=== PATIENT | female | born 1925 | race Caucasian/White ===

== ENCOUNTER 2016-10-21 18:57 | Inpatient (IN) ==
[2016-10-21] MEDS ORDERED: Ipratropium/Albuterol Neb 3 ML IH ONE (19:06)
[2016-10-21] MEDS ORDERED: methylPREDNISolone 125 MG/2 ML VIAL IVP ONE (19:06)
--- NOTE | 2016-10-21 19:11 | Emergency Department Note ---
Disposition Clinical Impression: Acute exacerbation of CHF (congestive heart failure) Qualifiers: Congestive heart failure type: unspecified congestive heart failure type Qualified Code(s): I50.9 - Heart failure, unspecified Disposition: Admitted As Inpatient Condition: Good Forms: ED Satisfaction Letter SOB HPI - General Chief Complaint: ED Shortness of Breath/Dyspnea Stated Complaint: LESLI Time Seen by Provider: 10/21/16 19:03 Source: patient, EMS Mode of arrival: EMS Limitations: no limitations Nursing Notes Reviewed: Yes Vital Signs Reviewed: Yes - History of Present Illness 89-year-old female presents to the ER with a chief complaint of shortness of breath. Pt Subjective Complaint: shortness of breath, cough Onset (ago): hour(s) Context: recent illness Severity: moderate Consistency/Duration: constant Improves with: bronchodilators Worsens with: nothing Associated symptoms: Reports: cough, wheezing. Denies: chest pain, fever, sputum production, lower extremity pain, nausea/vomiting Treatment prior to arrival: oxygen, bronchodilator Cough present: Yes Cough Description: Involuntary Cough Frequency: Intermittent Sputum production: No Sputum Amount: None - Related Data Home oxygen amount: none Allergies Allergy/AdvReac Type Severity Reaction Status Date / Time acetaminophen [From Tylenol] Allergy Rash Verified 10/21/16 19:12 clemastine [From Tavist] Allergy Nose Bleed Verified 10/21/16 19:12 diphenhydramine Allergy Rash Verified 10/21/16 19:12 [From Benadryl] Hydromorphone [From Dilaudid] Allergy Nose Bleed Verified 10/21/16 19:12 ibuprofen [From Advil] Allergy Rash Verified 10/21/16 19:12 morphine Allergy Difficulty Verified 10/21/16 19:12 Swallowing orange juice Allergy Gastrointestinal Verified 10/21/16 19:12 Upset Penicillins Allergy Rash Verified 10/21/16 19:12 pseudoephedrine [From Tavist] Allergy Nose Bleed Verified 10/21/16 19:12 Sulfa (Sulfonamide Allergy Rash Verified 10/21/16 19:12 Antibiotics) All systems ED: reviewed and negative except as stated. Constitutional: Denies: fever, chills, weakness Cardiovascular: Denies: chest pain Respiratory: Reports: cough, dyspnea, wheezes. Denies: hemoptysis Gastrointestinal: Denies: abdominal pain, nausea, vomiting, diarrhea Integumentary: Denies: rash Neurological: Denies: headache Past Medical History - Past Medical History Attestation: Yes The following information was validated with the patient. Source: patient Medical history: Reports: arthritis, coronary artery disease, CVA, hypertension Surgical history: Reports: non-contributory Psychiatric history: Reports: no psych history - Social History Smoking Status: Never smoker Alcohol use: Reports: none Drug use: Reports: none Physical Exam - General Limitations: no limitations General appearance: alert, in no apparent distress - Head Head exam: atraumatic, normocephalic, normal inspection - Eye Eye exam: Present: normal appearance, EOMI - ENT ENT exam: normal exam - Neck Neck exam: Present: normal inspection - Chest Chest inspection: Present: normal inspection, symmetric chest wall rise - Respiratory Respiratory exam: Present: wheezes (Bilateral wheezing more significant on the right with prolonged expiratory phase.), prolonged expiratory phase. Absent: respiratory distress, stridor, accessory muscle use - Cardiovascular Cardiovascular exam: Present: regular rate, normal rhythm, diastolic murmur - Abdominal Exam Abdominal exam: Present: soft, Non-Tender. Absent: tenderness - Extremities Exam Extremities exam: Present: normal inspection, full ROM - Expanded Lower Extremity Exam Hip/Pelvis exam: Present: normal inspection, full ROM Upper leg exam: Present: normal inspection, full ROM Knee exam: Present: normal inspection, full ROM Lower leg exam: Present: normal inspection, full ROM. Absent: tenderness, swelling Ankle exam: Present: normal inspection, full ROM Foot/toe exam: Present: normal inspection, full ROM - Neurological Exam Neurological exam: Present: alert - Psychiatric Psychiatric exam: Present: normal affect, normal mood - Skin Skin exam: Present: warm, dry, intact, normal color Course Course Narrative: 89-year-old female history of hypertension, CAD, CVA who presents to the ER via EMS with a chief complaint of shortness of breath. Patient states she started developing shortness of breath yesterday evening at home. She denies a history of smoking or oxygen dependence. She reports a nonproductive cough. No sick contacts that she is aware of. She did receive her influenza vaccine this year. She denies fevers, chest pain, nausea, vomiting, diarrhea. EMS was called and the patient was transported in stable condition. She did receive 1 DuoNeb in route and reports improvement of her symptoms. No recent antibiotic use or illness. Reports that her daughter is usually at home taking care of her but that she is currently out of the state. Friend is on their way to the ED now. No other complaints. Plan for patient is EKG, chest x-ray. Will give another DuoNeb here and IV Solu -Medrol. Labs pending including troponin and BNP. Disposition pending. - Reevaluation(s) Reevaluation #1: Discussed results of imaging and lab work with the patient and family. Vital Signs Temperature 98.4 F 10/21/16 18:59 Pulse Rate 72 10/21/16 18:59 Respiratory Rate 20 10/21/16 18:59 Blood Pressure 230/110 10/21/16 18:59 O2 Sat by Pulse Oximetry 100 10/21/16 18:59 Temperature 98.4 F 10/21/16 18:59 Pulse Rate 67 10/21/16 20:30 Respiratory Rate 22 10/21/16 20:30 Blood Pressure 201/113 10/21/16 20:30 O2 Sat by Pulse Oximetry 96 10/21/16 20:30 Oxygen Delivery Oxygen Delivery Nasal Cannula Shortness of Breath/Dyspnea - [facility] Narrative Medical decision making narrative: 89-year-old female presents to the ER due to shortness of breath. Her EKG here is sinus rhythm. BNP is elevated and her chest x-ray shows concern for pulmonary vascular congestion. She was given a DuoNeb and Solu-Medrol for her wheezing. Also received 20 mg of Lasix. Will be admitted to the hospital for further management. - Lab Data Lab results reviewed: Yes I reviewed the patient's lab results. Result diagrams: 10/21/16 19:50 10/21/16 19:50 Lab Results 10/21/16 10/21/16 10/21/16 Range/Units 19:50 19:50 19:50 WBC 10.3 (4.3-11.1) K/mcL RBC 4.72 (3.82-4.97) M/mcL Hgb 13.0 (11.5-15.4) g/dL Hct 40.3 (35.3-44.9) % MCV 85.4 (83.0-100.0) fL MCH 27.5 L (28.0-33.3) pg MCHC 32.3 (31.6-35.5) g/dL RDW 12.9 (11.5-14.5) % Plt Count 373 (140-400) K/mcL MPV 9.7 (9.4-12.4) fL Immature Gran % 0.6 (0-4) % Seg Neutrophils % 76.9 % Lymphocytes % 9.0 % Monocytes % 7.6 % Eosinophils % 5.3 % Basophils % 0.6 % Neutrophils # 7.9 (1.6-8.9) K/mcL Lymphocytes # 0.9 (0.6-4.6) K/mcL Monocytes # 0.8 (0.0-1.3) K/mcL Eosinophils # 0.5 (0.0-0.6) K/mcL Basophils # 0.1 (0.0-0.2) K/mcL Sodium 141 (136-145) mEq/L Potassium 4.3 (3.5-4.5) mEq/L Chloride 105 (98-109) mEq/L Carbon Dioxide 25 (19-29) mEq/L BUN 27 H (7-20) mg/dL Creatinine 0.77 (0.57-1.11) mg/dL Est GFR ( Amer) > 60 (> 60) Est GFR (Non-Af Amer) > 60 (> 60) BUN/Creatinine Ratio 35 H (6-26) Glucose 127 H (70-99) mg/dL Calculated Osmolality 299 (280-300) Calcium 9.0 (8.6-10.8) mg/dL Troponin I 0.02 (0-0.03) ng/mL B-Natriuretic Peptide (0-100) pg/mL 10/21/16 Range/Units 19:50 WBC (4.3-11.1) K/mcL RBC (3.82-4.97) M/mcL Hgb (11.5-15.4) g/dL Hct (35.3-44.9) % MCV (83.0-100.0) fL MCH (28.0-33.3) pg MCHC (31.6-35.5) g/dL RDW (11.5-14.5) % Plt Count (140-400) K/mcL MPV (9.4-12.4) fL Immature Gran % (0-4) % Seg Neutrophils % % Lymphocytes % % Monocytes % % Eosinophils % % Basophils % % Neutrophils # (1.6-8.9) K/mcL Lymphocytes # (0.6-4.6) K/mcL Monocytes # (0.0-1.3) K/mcL Eosinophils # (0.0-0.6) K/mcL Basophils # (0.0-0.2) K/mcL Sodium (136-145) mEq/L Potassium (3.5-4.5) mEq/L Chloride (98-109) mEq/L Carbon Dioxide (19-29) mEq/L BUN (7-20) mg/dL Creatinine (0.57-1.11) mg/dL Est GFR ( Amer) (> 60) Est GFR (Non-Af Amer) (> 60) BUN/Creatinine Ratio (6-26) Glucose (70-99) mg/dL Calculated Osmolality (280-300) Calcium (8.6-10.8) mg/dL Troponin I (0-0.03) ng/mL B-Natriuretic Peptide 497 H (0-100) pg/mL - Radiology Data Radiology results reviewed: Yes I reviewed the patient's radiology results. Chest X-Ray 10/21/16 19:06 IMPRESSION: 1. Minimal patchy airspace opacities in the right lung could represent developing multifocal pneumonia or edema. 2. Pulmonary vascular congestion. 3. Suspected bilateral pleural effusions. D/ / Jesse Rhodes MD / Jesse Rhodes MD Interpreting Provider: Jesse Rhodes MD - EKG Data EKG attestation: Yes I reviewed and interpreted this EKG. EKG results narrative: EKG demonstrates sinus rhythm with a rate of 72 bpm. Left axis deviation. GA interval 179 QRS duration 82 QTc 413. T-wave flattening in lead V1. No ST elevations or depressions. No acute ischemic findings. No previous EKG for comparison. EKG shows normal: Reports: sinus rhythm, intervals, QRS complexes, ST-T waves Rate: Reports: normal Rhythm: Reports: NSR Debary/QRS: Reports: left axis deviation When compared to previous EKG there are: previous EKG unavailable Interpretation: Reports: normal EKG, nonspecific ST-T wave changes S.B.A.R. - S.B.A.R. Situation: Demographics, MOA Background: Presenting Complaint, Relevant PMH, Meds, & Allergies Assessment: Vital Signs, Course and respsone to treatment, Exam Concerns, Patient/Family Expectation, Pertinant Lab Results, Outstanding Labs Recommendation: Barrier(s) to disposition, Recommendation based on pending studies, treatments, or consults David Report Given to: Dr. Sara Hernandez Repor Time: 20:59
--- NOTE | 2016-10-21 19:36 | Emergency Department Note ---
START Narrative - START START: I examined this patient and my medical decision-making was reviewed with the IN CLASS SPECIAL EDUCATION TEACHER/PA/Advanced Practice Nurse/Resident Physician. I agree with the documented findings, disposition and treatment plan as described except to the extent set forth below. ED attending note: Patient seen with emergency medicine resident Dr. Brumfield. Please see a copy of his note for details of the H&P, evaluation, management and disposition of this patient. We independently had [id number] contact with the patient Briefly: A 89-year-old female by EMS, nonsmoker COPD without using supplemental home O2 one to 2 days of cough and congestion. Low-grade fever and fatigue. She has mild expiratory wheezing and decreased breath sounds on the right. Afebrile with stable vital signs in the ED. Getting DuoNeb treatments chest x- rays. EKG shows no acute ischemic change. Awaiting x-ray troponin response to beta agonists. Provided 30 minutes of critical care services for this patient. Disposition pending.
[2016-10-21 20:03] LABS: Basophils # 0.1 K/mcL (0.0-0.2); Basophils % 0.6 %; Eosinophils # 0.5 K/mcL (0.0-0.6); Eosinophils % 5.3 %; Hematocrit 40.3 % (35.3-44.9); Immature Granulocytes % 0.6 % (0-4); Lymphocytes # 0.9 K/mcL (0.6-4.6); Mean Corpuscular HGB Conc 32.3 g/dL (31.6-35.5); Mean Corpuscular Hemoglobin 27.5 pg (28.0-33.3); Mean Corpuscular Volume 85.4 fL (83.0-100.0); Mean Platelet Volume 9.7 fL (9.4-12.4); Monocytes # 0.8 K/mcL (0.0-1.3); Monocytes % 7.6 %; Neutrophils # 7.9 K/mcL (1.6-8.9); Platelet Count 373 K/mcL (140-400); Red Blood Count 4.72 M/mcL (3.82-4.97); Red Cell Distribution Width 12.9 % (11.5-14.5); Segmented Neutrophils % 76.9 %
[2016-10-21 20:17] LABS: BUN/Creatinine Ratio 35 (6-26); Blood Urea Nitrogen 27 mg/dL (7-20); Carbon Dioxide 25 mEq/L (19-29); Chloride 105 mEq/L (98-109); Glucose 127 mg/dL (70-99); Osmolality,Calculated 299 (280-300); Potassium 4.3 mEq/L (3.5-4.5); Sodium 141 mEq/L (136-145); eGFR For African Americans > 60 (> 60); eGFR For Non-African Americans > 60 (> 60)
[2016-10-21] MEDS ORDERED: Furosemide 20 MG/2 ML VIAL IVP ONE (20:17)
[2016-10-22] MEDS ORDERED: Ondansetron 4 MG/2 ML VIAL IVP PRN (00:10)
[2016-10-22] MEDS ORDERED: Albuterol 2.5 MG/3 ML NEBULIZER IH PRN (00:10)
[2016-10-22] MEDS ORDERED: Naloxone 0.4 MG/ML INJ IVP PRN (00:10)
--- NOTE | 2016-10-22 00:28 | Internal Med History&Physical ---
Date of Encounter: 10/22/16 Time of Encounter: 00:23 Assessment and Plan (1) CAP (community acquired pneumonia) Current visit: Yes Status: Acute 1. I am not convinced she has CHF. Clinically, she is dry, and history supports pneumonia and/or viral URI. 2. No more diuretics for now. 3. Will cycle troponins, EKG's, and obtain ECHO to evaluate LV function. 4. Will order blood cultures and treat with antibiotics, aerosols, and oxygen. 5. Check influenza panel. 6. Monitor I/O and daily weight. (2) Hypertension Current visit: Yes Status: Chronic 1. Resume home meds as appropriate. 2. Monitor BP and adjust meds as necessary. Qualifiers: Hypertension type: essential hypertension Qualified Code(s): I10 - Essential (primary) hypertension (3) DVT prophylaxis Current visit: Yes Status: Acute 1. Heparin SQ. Internal Medicine - H&P: HPI Chief complaint: SOB, cough Admitted From: Emergency Dept Plans for Post Hospital Care: Home History of present illness: Ms. Boateng is an 89 year old female who presents [facility] with complaints of shortness of breath, cough, and congestion. Symptoms started roughly 2-3 days ago and have progressively worsened. Because of her persistent symptoms, she came to ER where she was seen and evaluated. Workup revealed patient to have an elevated BNP and an abnormal chest x-ray. There was clinical concern for CHF at that time. She therefore received a dose of Lasix along with some aerosols and steroids. She was subsequently admitted to hospitalist service. Upon my assessment of the patient, she appears dehydrated and does not appear to be fluid overloaded. She states she has been coughing productively, short of breath, and suffering a head cold and congestion. She denies any prior history of heart disease or heart failure. She denies any change in weight or any lower extremity edema. She has had multiple ill contacts as well. She denies any fevers, although she does have some chills and night sweats. She denies any vomiting or diarrhea. Appetite and fluid intake have been down as well. She denies any current chest pain or palpitations. She is still a little short of breath, however. Past Med Surg Social Fam HX - Past Medical History Attestation: Yes The following information was validated with the patient. Source: patient, old records reviewed Medical history: arthritis, coronary artery disease, CVA, hypertension Psychiatric history: no psych history - Past Surgical History Surgical History: orthopedic, other (foot surgery) - Social History Smoking Status: Never smoker Alcohol use: none Drug use: none Current living situation: Home, With Family Recent Out of Country Travel Within the Last 8 Weeks: No - Family History Mother History Unknown: Yes Living Status: Father History Unknown: Yes Living Status: Internal Medicine - H&P: Meds Aspirin [Ecotrin] 325 mg PO HS 10/21/16 [History] CloNIDine HCl [Clonidine HCl] 0.2 mg PO TID 10/21/16 [History] Clopidogrel [Plavix] 75 mg PO DAILY 10/21/16 [History] HydrOXYzine 2 tab PO HS 10/21/16 [History] Latanoprost [Xalatan] 1 drop HS 10/21/16 [History] Metoprolol 100 mg PO DAILY 10/21/16 [History] Multivit-Min/FA/Lycopen/Lutein [Centrum Silver Tablet] 1 each PO DAILY 10/21/16 [History] Sodium Bicarbonate 650 mg PO DAILY 10/21/16 [History] Tramadol HCl [Ultram] 50 mg PO TID PRN 10/21/16 [History] Vit C/Vit E/Lutein/Min/[place]-3 [Ocuvite Softgel] 1 each PO 1200 10/21/16 [ History] Allergies acetaminophen [From Tylenol] Allergy (Verified 10/21/16 19:12) Rash clemastine [From Tavist] Allergy (Verified 10/21/16 19:12) Nose Bleed diphenhydramine [From Benadryl] Allergy (Verified 10/21/16 19:12) Rash Hydromorphone [From Dilaudid] Allergy (Verified 10/21/16 19:12) Nose Bleed ibuprofen [From Advil] Allergy (Verified 10/21/16 19:12) Rash morphine Allergy (Verified 10/21/16 19:12) Difficulty Swallowing orange juice Allergy (Verified 10/21/16 19:12) Gastrointestinal Upset Penicillins Allergy (Verified 10/21/16 19:12) Rash pseudoephedrine [From Tavist] Allergy (Verified 10/21/16 19:12) Nose Bleed Sulfa (Sulfonamide Antibiotics) Allergy (Verified 10/21/16 19:12) Rash - Constitutional Constitutional: chills, night sweats, weakness, no fever(s) - EENT Eyes: no blurry vision, no change in vision Ears: no ear pain, no tinnitus Nose, mouth and throat: nasal congestion, no post-nasal drip, no sinus pressure , no sore throat - Cardiovascular Cardiovascular ROS IM: dyspnea, dyspnea on exertion, no chest pain, no edema, no orthopnea, no paroxysmal nocturnal dyspnea - Respiratory Respiratory: cough, dyspnea, dyspnea on exertion, chest congestion, no hemoptysis, no excessive phlegm production - Gastrointestinal Gastrointestinal: no abdominal pain, no diarrhea, no hematemesis, no hematochezia, no melena, no vomiting - Genitourinary Genitourinary: no dysuria, no hematuria - Musculoskeletal Musculoskeletal ROS IM: arthralgias, back pain, muscle weakness, no myalgias - Integumentary Integumentary IM: no rash, no jaundice - Neurological Neurological ROS: no dizziness, no focal weakness, no frequent falls, no headache(s) - Psychiatric Psychiatric: no anxiety, no depression - Endocrine Endocrine IM: no polydipsia, no polyuria - Hematologic/Lymphatic Hematologic/Lymphatic: easy bruising, no lymphadenopathy - Allergic/Immunologic Allergic/Immunologic: no GI upset with certain foods - Constitutional Vitals: Temp Pulse Resp BP Pulse Ox 97.6 F 69 16 165/74 93 L 10/21/16 21:44 10/21/16 21:44 10/21/16 21:44 10/21/16 21:44 10/21/16 21:44 General appearance: Present: cooperative, A&O X 3, pleasant, no acute distress, answers questions appropriately Exam: pt looks a little dry; does not appear to be fluid overloaded - Head Head exam: Present: atraumatic, normal inspection - Expanded Head Exam Head exam expanded: Absent: abrasion, contusion, general tenderness - Eye Eye exam: Present: PERRL. Absent: scleral icterus Pupils: Present: normal accommodation - ENT ENT exam: Present: mucous membranes dry, normal exam, normal oropharynx - Neck Neck exam general surgery: Present: full ROM, supple. Absent: lymphadenopathy, tenderness - Respiratory Respiratory exam: Present: rales (right base). Absent: chest wall tenderness, respiratory distress, rhonchi, wheezes - Cardiovascular Cardiovascular exam: Present: RRR, +S1, +S2. Absent: diastolic murmur, JVD, systolic murmur - GI/Abdominal GI/Abdominal exam: Present: normal bowel sounds, soft. Absent: guarding, mass, rebound, tenderness - Extremities Exam Extremities exam: Present: warm. Absent: calf tenderness, joint swelling, pedal edema Additional comments: foot deformities consistent with Charcot feet - Back Exam Back exam: Present: normal inspection. Absent: CVA tenderness (L), CVA tenderness (R) - Neurological Exam Neurological exam: Present: alert, CN II-XII intact, oriented X3, no focal deficits - Psychiatric Psychiatric exam: Present: normal affect, normal mood - Skin Skin exam: Present: dry, warm. Absent: rash Additional comments: + skin tenting consistent with mild dehydration Internal Med - H&P Results - Labs CBC & Chem 7: 10/21/16 19:50 10/21/16 19:50 - EKG Data -: EKG Interpreted by Myself EKG shows normal: sinus rhythm - EKG Data Prior EKG available for review: no EKG comments: 10/22/16 00:33 Sinus rhythm; LVH pattern - Diagnostic Studies Chest x-ray Status: image reviewed by me (I dont appreciate CHf findings; patchy infiltrate RML; small right pleural effusion)
[2016-10-22] MEDS ORDERED: Levofloxacin 750 MG/150 ML 750 MG/150 ML BAG IVPB SCH (01:00)
[2016-10-22 01:45] LABS: INR 1.1; Prothrombin Time 12.2 Seconds (9.4-12.1)
[2016-10-22 01:47] LABS: Activated Partial Thrombo Time 29.1 Seconds (26.0-36.0)
[2016-10-22 01:48] LABS: Basophils % 0.2 %; Eosinophils % 0.1 %; Hematocrit 37.9 % (35.3-44.9); Hemoglobin 12.2 g/dL (11.5-15.4); Immature Granulocytes % 0.8 % (0-4); Lymphocytes # 0.7 K/mcL (0.6-4.6); Lymphocytes % 6.5 %; Mean Corpuscular HGB Conc 32.2 g/dL (31.6-35.5); Mean Corpuscular Hemoglobin 27.3 pg (28.0-33.3); Mean Corpuscular Volume 84.8 fL (83.0-100.0); Mean Platelet Volume 9.9 fL (9.4-12.4); Monocytes # 0.1 K/mcL (0.0-1.3); Monocytes % 0.5 %; Neutrophils # 10.4 K/mcL (1.6-8.9); Platelet Count 401 K/mcL (140-400); Red Blood Count 4.47 M/mcL (3.82-4.97); Segmented Neutrophils % 91.9 %
[2016-10-22 01:54] LABS: Alanine Aminotransferase 11 Units/L (0-55); Albumin 2.4 g/dL (3.5-5.0); Albumin/Globulin Ratio 0.5 (1.1-2.2); Alkaline Phosphatase 87 Units/L (38-126); Aspartate Amino Transferase 15 Units/L (5-34); BUN/Creatinine Ratio 33 (6-26); Bilirubin,Total 0.2 mg/dL (0.2-1.2); Blood Urea Nitrogen 26 mg/dL (7-20); Calcium 9.2 mg/dL (8.6-10.8); Carbon Dioxide 23 mEq/L (19-29); Chloride 104 mEq/L (98-109); Cholesterol 144 mg/dL (< 200); Globulin 4.7 g/dL (2.4-3.5); Glucose 171 mg/dL (70-99); HDL Cholesterol 29 mg/dL (40-59); LDL Cholesterol,Calculated 97 mg/dL (0-99); Magnesium 1.4 mg/dL (1.6-2.6); Osmolality,Calculated 295 (280-300); Potassium 4.5 mEq/L (3.5-4.5); Sodium 138 mEq/L (136-145); Total Protein 7.1 g/dL (6.0-8.3); Triglycerides 91 mg/dL (< 150); eGFR For African Americans > 60 (> 60); eGFR For Non-African Americans > 60 (> 60)
[2016-10-22] MEDS: *HR* Heparin 5,000 UNIT/ML VIAL SQ SCH ×2 (02:02→18:15)
[2016-10-22] MEDS: traMADol 50 MG TABLET PO PRN ×3 (03:47→20:58)
[2016-10-22] MEDS: Ipratropium/Albuterol Neb 3 ML IH SCH ×4 (04:39→21:43)
[2016-10-22] MEDS: cloNIDine HCl 0.1 MG TABLET PO SCH ×3 (08:43→20:54)
[2016-10-22] MEDS: Magnesium Oxide 400 MG TABLET PO SCH ×2 (08:43→20:54)
[2016-10-22] MEDS: Metoprolol XL (24 HR) Succ 50 MG TAB.ER.24H PO SCH (08:43)
[2016-10-22] MEDS: Multivit/Ca/Min/Fe/FA 1 TAB TABLET PO SCH (08:44)
--- NOTE | 2016-10-22 14:06 | Event Note ---
Date of Encounter: 10/22/16 Time of Encounter: 09:00 Patient seen and examined. On examination, patient is sitting in high [place]' s. Patient currently complaining of back pain that she states started last night. She is requesting for her pain medication increased. She denies shortness of breath. Patient stating her cough has nearly resolved. Her respirations are even and easy and her lungs are clear to auscultation bilaterally. No pedal edema noted however her right foot is deformed. She states that she is nonambulatory for the past several months and is wheelchair bound. Mild hypomagnesemia noted she was started on by mouth supplementation. Echocardiogram pending. She is alert and oriented 3. Will increase her pain medication. web services developer on board however patient has 24 hour private pay homecare at home. Continue levofloxacin. Presentation more consistent with multifocal pneumonia as evidenced in the chest x-ray. She does not appear fluid overloaded on examination. We will continue to trend. Regarding pain medication, she has documented allergies to morphine, hydromorphone, ibuprofen and acetaminophen. Patient stating tramadol is not helping her pain, and review of her chart, she has had oxycodone in the past without adverse reactions documented. We will order oxycodone and monitor. She is currently on 2 L per nasal cannula, not on oxygen at home. We will wean as she tolerates. ITS Impressions Chest X-Ray 10/21/16 19:06 IMPRESSION: 1. Minimal patchy airspace opacities in the right lung could represent developing multifocal pneumonia or edema. 2. Pulmonary vascular congestion. 3. Suspected bilateral pleural effusions. D/ / Jesse Rhodes MD / Jesse Rhodes MD Interpreting Provider: Jesse Rhodes MD
[2016-10-22] MEDS ORDERED: *HR* OxyCODONE Immed Rel 5 MG TABLET PO PRN (14:07)
--- NOTE | 2016-10-22 15:20 | Electrocardiograph Report ---
[place] [address] Test Date: 2016-10-21 Pat Name: María Boateng Department: 102 Room: 3B14 Gender: F Beautician Apprentice: : 1925 Requested By: Godwin Brumfield Order Number: [id number] Reading MD: Patrice Cuevas Measurements Intervals [place] Rate: 72 P: 74 VT: 179 QRS: -14 QRSD: 82 T: 50 QT: 389 QTc: 413 Interpretive Statements SINUS RHYTHM LEFT VENTRICULAR HYPERTROPHY AND ST-T CHANGE Electronically Signed On 10-22-2016 15:19:17 EST by Patrice Cuevas
[2016-10-22] MEDS: Aspirin Enteric Coated 325 MG Tablet PO SCH (20:54)
[2016-10-22] MEDS: Latanoprost 2.5 ML BOTTLE BOTH EYES SCH (20:55)
[2016-10-23] MEDS: Ipratropium/Albuterol Neb 3 ML IH SCH ×4 (03:59→22:01)
[2016-10-23 05:09] LABS: BUN/Creatinine Ratio 42 (6-26); Blood Urea Nitrogen 38 mg/dL (7-20); Calcium 8.9 mg/dL (8.6-10.8); Carbon Dioxide 26 mEq/L (19-29); Chloride 103 mEq/L (98-109); Glucose 110 mg/dL (70-99); Magnesium 1.7 mg/dL (1.6-2.6); Osmolality,Calculated 296 (280-300); Potassium 4.4 mEq/L (3.5-4.5); Sodium 138 mEq/L (136-145); eGFR For African Americans > 60 (> 60); eGFR For Non-African Americans 59 (> 60)
[2016-10-23] MEDS ORDERED: *HR* Labetalol 20 MG/4 ML SYRINGE IVP ONE (05:25)
[2016-10-23] MEDS: *HR* Heparin 5,000 UNIT/ML VIAL SQ SCH ×2 (05:36→17:36)
[2016-10-23 05:44] LABS: Basophils % 0.4 %; Eosinophils % 0.1 %; Hematocrit 37.8 % (35.3-44.9); Hemoglobin 12.2 g/dL (11.5-15.4); Immature Granulocytes % 1.1 % (0-4); Lymphocytes # 1.5 K/mcL (0.6-4.6); Lymphocytes % 15.7 %; Mean Corpuscular HGB Conc 32.3 g/dL (31.6-35.5); Mean Corpuscular Hemoglobin 27.2 pg (28.0-33.3); Mean Corpuscular Volume 84.2 fL (83.0-100.0); Mean Platelet Volume 10.1 fL (9.4-12.4); Monocytes # 0.6 K/mcL (0.0-1.3); Monocytes % 6.7 %; Neutrophils # 7.1 K/mcL (1.6-8.9); Platelet Count 382 K/mcL (140-400); Red Blood Count 4.49 M/mcL (3.82-4.97)
[2016-10-23] MEDS: Multivit/Ca/Min/Fe/FA 1 TAB TABLET PO SCH (08:03)
[2016-10-23] MEDS: Magnesium Oxide 400 MG TABLET PO SCH ×2 (08:03→20:37)
[2016-10-23] MEDS: Metoprolol XL (24 HR) Succ 50 MG TAB.ER.24H PO SCH (08:03)
[2016-10-23] MEDS: cloNIDine HCl 0.1 MG TABLET PO SCH ×3 (08:03→20:38)
[2016-10-23] MEDS ORDERED: amLODIPine 5 MG TABLET PO ONE (08:08)
[2016-10-23 09:13] LABS: 2009 H1N1 PCR NOT DETECTED (Not Detect); Influenza A PCR Negative (Negative); Influenza B PCR Negative (Negative)
--- NOTE | 2016-10-23 09:24 | ECHO - Doppler Report ---
Echocardiogram Name: María Boateng Date of Study: 10/22/2016 Date: 1925 Ht: 65.0 in Medical Record#: [id number] Age: 89 Wt: 139.0 lb Gender: Female BSA: 1.69 Order #: [id number] Location: [facility] Room #: 3B14 Reading Physician: Callie Frey DO Oracle Technical Architect: Mandy Lee Ordering Physician: Mo Ruiz MD Primary Physician: Michael Sanders DO Indications: Shortness of breath Impressions: LVEF 55%. Normal left ventricular size and systolic function. Mild concentric hypertrophy of the left ventricle. There is evidence of moderate diastolic dysfunction of the left ventricle. Normal right ventricular size and function. Mild mitral regurgitation. Mild tricuspid regurgitation. At least mild pulmonary hypertension by TR gradient. IVC is not well visualized. Left Ventricular Wall Motion: Rest Echo Findings All wall segments showed normal motion. Findings: Study Quality * Technically adequate exam. ECG Findings * Normal sinus rhythm. Left Ventricle * LVEF 55%. * Mild concentric left ventricular hypertrophy. * Moderate left ventricular diastolic dysfunction. Aortic Valve * No aortic regurgitation. * Aortic valve not well visualized. * No aortic stenosis. Mitral Valve * Normal mitral valve structure. * No mitral stenosis. * Mild mitral annular calcification * Mild mitral regurgitation. Left Atrium * Moderately dilated left atrium. Tricuspid Valve * Tricuspid valve not well visualized. * Mild tricuspid regurgitation. Pulmonic Valve * Pulmonic valve is not well visualized. * No pulmonic stenosis. * No pulmonic regurgitation. Pulmonary Artery * Pulmonary artery not well visualized. Right Ventricle * Normal right ventricular structure and function. Right Atrium * Normal right atrial size. IVC * The IVC is not well evaluated. Interatrial Septum * Interatrial septum not well evaluated. Pericardium * There is no pericardial effusion present. Aorta * Not well visualized. History Hypertension 07/20/2016 a Previous Echo was performed. Measurements: BP: 166/ 90 2D Normal Values IVSd: 1.30 cm 0.6 - 1.0 cm LVIDd: 3.80 cm 3.7 - 5.6 cm LVPWd: 1.30 cm 0.6 - 1.1 cm LVIDs: 2.70 cm 1.5 - 3.6 cm AO: 2.40 cm < 4.0 cm LA: 2.90 cm 2.0 - 4.0cm %FS: 28.90 cm >25 % LA volume: 67 Mitral Valve Peak E:.96 m/sec Peak A:.84 m/sec E/A Ratio:1.1 Peak E' Lat Carlos:4.29 cm/s Peak E' Med Carlos:5.17 cm/s E/E' Lat Ratio:22.2 E/E' Med Ratio:18.4 Tricuspid Valve TV Regurg Peak Grad: 34.00mmHg TV Regurg Peak Carlos: 2.92m/sec Updated by Callie Frey on 10/23/2016 9:16:13 AM electronically signed on 10/23/2016 9:16:49 AM with status of Final Wall Motion Rangel: 1=Normal, 2=Hypokinesis, 3=Akinesis, 4=Dyskinesis, 5=Aneurysmal, 6=Hyperkinetic, X=Not Visualized (Blank)=Missing
--- NOTE | 2016-10-23 10:03 | Internal Med Progress Note ---
Date of Encounter: 10/23/16 Time of Encounter: 10:00 - Assessment and plan (1) CAP (community acquired pneumonia) Current Visit: Yes Status: Acute Assessment and plan: se came for sob and cough CXR showed multiple patchy opacities on marcella right side, being treated for multifocal pneumonia will continue levoflox. follow blood cx, will send for urine legionella and strep antigen. reports clinically better denies h/o COPD or asthma titrtae and wean off o2 as able. (2) Diastolic CHF Current Visit: Yes Status: Acute Assessment and plan: last ECHO showed normal EF and moderate DD. on exam appears to be euvolemic today no signs of volume overload. continue home meds Qualifiers: Congestive heart failure chronicity: chronic Qualified Code(s): I50.32 - Chronic diastolic (congestive) heart failure (3) Hypertension Current Visit: Yes Status: Chronic Assessment and plan: BP noted to be elevated s/p 1 dose of labetalol last night will start amlod 10 mg once and 5 mg daily continue the clonidine and the BB. will also add low dose TERRANCE-I which will be beneficial for the DD. monitor BP. Qualifiers: Hypertension type: essential hypertension Qualified Code(s): I10 - Essential (primary) hypertension - Time Spent With Patient 25 - 35 minutes - Subjective Interval history: patient seen at the bedsid, denies any complaints. Reports that breathing is better, does not have any chest pain or shortness of breath. Mild cough - Constitutional Vitals: Temp Pulse Resp BP Pulse Ox 97.7 F 66 17 185/102 96 10/23/16 07:36 10/23/16 07:36 10/23/16 07:36 10/23/16 07:36 10/23/16 07:36 General appearance: Present: cooperative, A&O X 3, pleasant, no acute distress, answers questions appropriately Exam: - Head Head exam: Present: atraumatic, normal inspection - Expanded Head Exam Head exam expanded: Absent: abrasion, contusion, general tenderness - Eye Eye exam: Present: PERRL. Absent: scleral icterus Pupils: Present: normal accommodation - ENT ENT exam: Present: mucous membranes dry, normal exam, normal oropharynx - Neck Neck exam general surgery: Present: full ROM, supple. Absent: lymphadenopathy, tenderness - Respiratory Respiratory exam: Present: clear breath sounds Absent: chest wall tenderness, respiratory distress, rhonchi, wheezes - Cardiovascular Cardiovascular exam: Present: RRR, +S1, +S2. Absent: diastolic murmur, JVD, systolic murmur - GI/Abdominal GI/Abdominal exam: Present: normal bowel sounds, soft. Absent: guarding, mass, rebound, tenderness - Extremities Exam Extremities exam: Present: warm. Absent: calf tenderness, joint swelling, pedal edema Additional comments: foot deformities consistent with Charcot feet, deformties of the upper and lower ext with swan neck deformity - Back Exam Back exam: Present: normal inspection. Absent: CVA tenderness (L), CVA tenderness (R) - Neurological Exam Neurological exam: Present: alert, CN II-XII intact, oriented X3, no focal deficits - Psychiatric Psychiatric exam: Present: normal affect, normal mood - Skin Skin exam: Present: dry, warm. Absent: rash Internal Medicine: Result - Labs CBC & Chem 7: 10/23/16 04:29 10/23/16 04:29 Labs: Short CBC 10/23/16 Range/Units 04:29 WBC 9.3 (4.3-11.1) K/mcL Hgb 12.2 (11.5-15.4) g/dL Hct 37.8 (35.3-44.9) % Plt Count 382 (140-400) K/mcL Neutrophils # 7.1 (1.6-8.9) K/mcL BMP 10/23/16 04:29 Sodium 138 Potassium 4.4 Chloride 103 Carbon Dioxide 26 BUN 38 H D Creatinine 0.90 Glucose 110 H Calcium 8.9 - ABG Interpretation ABG results: PT/INR, D-dimer PT 12.2 Seconds (9.4-12.1) H 10/22/16 01:19 Consult Discharge Plan - Plan Referrals: Michael Sanders DO [Primary Care Provider] -
[2016-10-23] MEDS: Aspirin Enteric Coated 325 MG Tablet PO SCH (20:38)
[2016-10-23] MEDS: Latanoprost 2.5 ML BOTTLE BOTH EYES SCH (20:38)
[2016-10-23] MEDS: traMADol 50 MG TABLET PO PRN (20:44)
[2016-10-24] MEDS ORDERED: Levofloxacin 750 MG/150 ML 750 MG/150 ML BAG IVPB SCH (02:00)
[2016-10-24] MEDS: Ipratropium/Albuterol Neb 3 ML IH SCH ×3 (03:54→15:59)
[2016-10-24] MEDS: *HR* Heparin 5,000 UNIT/ML VIAL SQ SCH (06:08)
[2016-10-24] MEDS: Magnesium Oxide 400 MG TABLET PO SCH (08:37)
[2016-10-24] MEDS: Multivit/Ca/Min/Fe/FA 1 TAB TABLET PO SCH (08:37)
[2016-10-24] MEDS: Metoprolol XL (24 HR) Succ 50 MG TAB.ER.24H PO SCH (08:37)
[2016-10-24] MEDS: cloNIDine HCl 0.1 MG TABLET PO SCH (08:38)
[2016-10-24] MEDS ORDERED: amLODIPine 5 MG TABLET PO SCH (09:00)
[2016-10-24 11:14] VITALS: BP 128/77
--- NOTE | 2016-10-24 14:12 | Discharge Summary ---
Date of Encounter: 10/24/16 Time of Encounter: 14:07 - Discharge Diagnosis (1) CAP (community acquired pneumonia) Priority: Primary Status: Acute (2) Diastolic CHF Priority: Secondary Status: Acute Qualifiers: Congestive heart failure chronicity: chronic Qualified Code(s): I50.32 - Chronic diastolic (congestive) heart failure (3) Hypertension Priority: Secondary Status: Chronic Qualifiers: Hypertension type: essential hypertension Qualified Code(s): I10 - Essential (primary) hypertension - Discharge Medications Prescriptions: Amlodipine [Norvasc] 10 mg PO DAILY #30 tablet Levofloxacin 500 mg PO DAILY #5 tablet Home Medications: Latanoprost [Xalatan] 1 drop BOTH EYES QPM 08/29/15 [History] Aspirin [Ecotrin] 325 mg PO HS 10/21/16 [History] CloNIDine HCl [Clonidine HCl] 0.2 mg PO TID 10/21/16 [History] Clopidogrel [Plavix] 75 mg PO DAILY 10/21/16 [History] Metoprolol XL (24 HR) Succ [Toprol Xl] 100 mg PO DAILY 10/21/16 [History] Sodium Bicarbonate 650 mg PO QAM 10/21/16 [History] HydrOXYzine Pamoate 50 mg PO HS 10/22/16 [History] Multivitamin/Iron/Folic Acid [Centrum Complete Multivit Tab] 1 tab PO DAILY [History] Mv-Mn/FA/Vit K1/Lycop/Lut/Zeax [Ocuvite Eye + Multi Tablet] 1 tab PO QDPC [History] Tramadol HCl [Ultram] 50 mg PO PRN PRN 10/22/16 [History] Amlodipine [Norvasc] 10 mg PO DAILY #30 tablet 10/24/16 [Rx] Levofloxacin 500 mg PO DAILY #5 tablet 10/24/16 [Rx] Allergies/Adverse Reactions: Allergies Sulfa (Sulfonamide Antibiotics) Allergy (Mild, Verified 04/19/16 10:49) Rash clemastine [From Tavist] Allergy (Verified 05/27/16 13:53) See Comments Hydromorphone [From Dilaudid] Allergy (Verified 05/27/16 13:53) See Comments pseudoephedrine [From Tavist] Allergy (Verified 05/27/16 13:53) See Comments diphenhydramine [From Benadryl] Adverse Reaction (Mild, Verified 04/19/16 10:47) Drowsy orange juice Adverse Reaction (Mild, Verified 04/19/16 10:51) See Comments Patient reporst "gallbladder attacks" acetaminophen [From Tylenol] Adverse Reaction (Verified 08/31/15 11:06) Hypertension Hydralazine Adverse Reaction (Verified 07/25/16 11:50) See Comments patient is sensitive to medication, drops blood pressure too much ibuprofen [From Advil] Adverse Reaction (Verified 05/27/16 13:53) See Comments morphine Adverse Reaction (Verified 08/31/15 11:06) See Comments Penicillins Adverse Reaction (Verified 08/31/15 11:05) Nose Bleed Date of admission: 10/22/16 14:24 Primary care physician: Michael Sanders Discharging clinician: Laury Farrar Anticipated date of discharge: 10/24/16 - Patient Status Disposition: Home, Self-Care Condition: Good Functional capacity at discharge: uses cane/walker Overall status at discharge: patient is back to baseline - Discharge Instructions Instructions: Amlodipine (By mouth), Levofloxacin (By mouth), Heart Failure (DC ), Chronic Hypertension (DC) Follow Up With: Michael Sanders, [Primary Care Provider] - 11/01/16 11:00 am - Diet and Activity Activity: resume usual activities as tolerated Diet: advance to your usual diet Interval History: Ms. Boateng is an 89 year old female who presents to ER [facility] with complaints of shortness of breath, cough, and congestion. Symptoms started roughly 2-3 days ago and have progressively worsened. Because of her persistent symptoms, she came to ER where she was seen and evaluated. Workup revealed patient to have an elevated BNP and an abnormal chest x-ray. There was clinical concern for CHF vs pneumonia at that time. She therefore received a dose of Lasix along with some aerosols and steroids. She was subsequently admitted to hospitalist service. Upon further assessment of the patient, she appears dehydrated and does not appear to be fluid overloaded. She states she has been coughing productively, short of breath, and suffering a head cold and congestion. She denies any prior history of heart disease or heart failure. She denies any change in weight or any lower extremity edema. She has had multiple ill contacts as well. She denies any fevers, although she does have some chills and night sweats. She denies any vomiting or diarrhea. Appetite and fluid intake have been down as well. She denies any current chest pain or palpitations. she was thus started on IV antibiotics and lasix was stopped. she improved clinically with the tretament she was n oted to have elevated BP. have added amlodipine along with the BB and the clonidine that she takes at home she is being dc today in stable condition with oral antibiotics. Hospital course: Ms. Boateng is a 89 year old female Time spent discussing smoking cessation with patient: more than 10 minutes - Time Spent with Patient Total time spent providing and/or coordinating discharge services: Greater than 30 minutes - Constitutional Vitals: Temp Pulse Resp BP Pulse Ox 97.9 F 84 16 128/77 94 L 10/24/16 11:13 10/24/16 11:13 10/24/16 11:13 10/24/16 11:13 10/24/16 11:13 General appearance: Present: cooperative, A&O X 3, pleasant, no acute distress, answers questions appropriately Exam: - Head Head exam: Present: atraumatic, normal inspection - Eye Eye exam: Present: PERRL. Absent: scleral icterus Pupils: Present: normal accommodation - ENT ENT exam: Present: normal exam, normal oropharynx - Neck Neck exam general surgery: Present: full ROM, supple. Absent: lymphadenopathy, tenderness - Respiratory Respiratory exam: Present: rales (right base). Absent: chest wall tenderness, respiratory distress, rhonchi, wheezes - Cardiovascular Cardiovascular exam: Present: RRR, +S1, +S2. Absent: diastolic murmur, JVD, systolic murmur - GI/Abdominal GI/Abdominal exam: Present: normal bowel sounds, soft. Absent: guarding, mass, rebound, tenderness - Extremities Exam Extremities exam: Present: warm. Absent: calf tenderness, joint swelling, pedal edema Additional comments: foot deformities consistent with Charcot feet - Back Exam Back exam: Present: normal inspection. Absent: CVA tenderness (L), CVA tenderness (R) - Neurological Exam Neurological exam: Present: alert, CN II-XII intact, oriented X3, no focal deficits - Psychiatric Psychiatric exam: Present: normal affect, normal mood - Skin Skin exam: Present: dry, warm. Absent: rash
== END 2016-10-24 16:05 | disposition home or self-care (01) | DRG 194 ==
LOC: EMEROO 18:57 → 3BNU 18:57 → MERGE 21:07 → 3BNU 21:30
PROVIDERS: ADMIT Pediatrics; ATTEND Nurse Practitioner Family

== ENCOUNTER 2016-10-30 12:43 | Inpatient (IN) ==
--- NOTE | 2016-10-30 16:04 | Emergency Department Note ---
Disposition Clinical Impression: Acute exacerbation of chronic obstructive airways disease Dyspnea Qualifiers: Dyspnea type: unspecified Qualified Code(s): R06.00 - Dyspnea, unspecified Disposition: Admitted As Inpatient Condition: Fair Time of Disposition: 18:16 SOB HPI - General Chief Complaint: ED Shortness of Breath/Dyspnea Stated Complaint: LESLI,Wheezing Time Seen by Provider: 10/30/16 14:59 Source: patient, family Mode of arrival: ambulatory Limitations: no limitations Nursing Notes Reviewed: Yes Vital Signs Reviewed: Yes - History of Present Illness 89-year-old female history of hypertension, diastolic congestive heart failure presents to the ED for difficulty in breathing. Patient was recently discharged after being diagnosed with heart failure and treated for community acquired pneumonia 6 days ago, Tuesday 10/24. Since then the patient has finished a five-day course of Levaquin. She reports yesterday she felt more shorter breath with laying down. She required prompting with 3 pillows in order to sleep last night. She presents with her caregivers who are there 24 hours of the day, she lives with her daughter at home. She denies any recent fever, productive cough, chest pain. She is not have any swelling of the ankles. She has just started a new medication amlodipine on discharge. She has been taking all her medications as prescribed. Follow-up appointment with her primary care physician Dr. Sanders on 11/01. ECHO 10/22 with EF 55% with moderate diastolic Pt Subjective Complaint: shortness of breath Onset (ago): day(s) - Related Data Home Medications Medication Instructions Recorded Confirmed Latanoprost [Xalatan] 1 drop BOTH EYES QPM 08/29/15 10/30/16 Aspirin [Ecotrin] 325 mg PO HS 10/21/16 10/30/16 CloNIDine HCl [Clonidine HCl] 0.2 mg PO TID 10/21/16 10/30/16 Clopidogrel [Plavix] 75 mg PO DAILY 10/21/16 10/30/16 Metoprolol XL (24 HR) Succ [Toprol 100 mg PO DAILY 10/21/16 10/30/16 Xl] Sodium Bicarbonate 650 mg PO QAM 10/21/16 10/30/16 HydrOXYzine Pamoate 50 mg PO HS 10/22/16 10/30/16 Multivitamin/Iron/Folic Acid 1 tab PO DAILY 02/27/17 03/07/17 [Centrum Complete Multivit Tab] Mv-Mn/FA/Vit K1/Lycop/Lut/Zeax 1 tab PO QDPC 10/22/16 10/30/16 [Ocuvite Eye + Multi Tablet] Tramadol HCl [Ultram] 50 mg PO PRN PRN 10/22/16 10/30/16 Previous Rx's Medication Instructions Recorded Amlodipine [Norvasc] 10 mg PO DAILY #30 tablet 10/24/16 Allergies Allergy/AdvReac Type Severity Reaction Status Date / Time Sulfa (Sulfonamide Allergy Mild Rash Verified 04/19/16 10:49 Antibiotics) clemastine [From Tavist] Allergy See Verified 05/27/16 13:53 Comments Hydromorphone [From Dilaudid] Allergy See Verified 05/27/16 13:53 Comments pseudoephedrine [From Tavist] Allergy See Verified 05/27/16 13:53 Comments diphenhydramine AdvReac Mild Drowsy Verified 04/19/16 10:47 [From Benadryl] orange juice AdvReac Mild See Verified 04/19/16 10:51 Comments acetaminophen [From Tylenol] AdvReac Hypertensio Verified 08/31/15 11:06 n Hydralazine AdvReac See Verified 07/25/16 11:50 Comments ibuprofen [From Advil] AdvReac See Verified 05/27/16 13:53 Comments morphine AdvReac See Verified 08/31/15 11:06 Comments Penicillins AdvReac Nose Bleed Verified 08/31/15 11:05 All systems ED: reviewed and negative except as stated. Constitutional: Denies: fever, chills Cardiovascular: Denies: chest pain Respiratory: Reports: cough, dyspnea, wheezes. Denies: hemoptysis, stridor, sputum production Gastrointestinal: Denies: abdominal pain, nausea, vomiting Genitourinary: Denies: urgency, dysuria Musculoskeletal: Denies: back pain, neck pain Integumentary: Denies: rash, abrasion Past Medical History - Past Medical History Attestation: Yes The following information was validated with the patient. Source: patient Medical history: Reports: arthritis, CHF, coronary artery disease, CVA, hypertension, peripheral artery disease, RA, TIA Surgical history: Reports: hip replacement, knee replacement, orthopedic, other , ANASTASIA/BSO, appendectomy Psychiatric history: Reports: no psych history SOCIAL SERVICE COORDINATOR history: Reports: no SOCIAL SERVICE COORDINATOR history - Social History Smoking Status: Never smoker Smokeless Tobacco Status: No Alcohol use: Reports: none Drug use: Reports: none Physical Exam - General Limitations: no limitations General appearance: alert, in no apparent distress, other (She is wearing a nasal cannula, no respiratory distress, frail appearing) - Head Head exam: atraumatic, normocephalic, normal inspection - Eye Eye exam: Present: normal appearance, PERRL, EOMI - ENT ENT exam: normal exam, normal oropharynx, mucous membranes moist - Neck Neck exam: Present: normal inspection, full ROM, trachea midline - Chest Chest inspection: Present: normal inspection, symmetric chest wall rise. Absent : tenderness, rash - Respiratory Respiratory exam: Present: normal lung sounds bilaterally, wheezes (Expiratory) , other (Coarse breath sounds, normal work of breathing). Absent: respiratory distress, accessory muscle use - Expanded Respiratory Exam Location: wheezes: Right, rales: Lower - Cardiovascular Cardiovascular exam: Present: regular rate, normal rhythm, normal heart sounds. Absent: systolic murmur, diastolic murmur - Abdominal Exam Abdominal exam: Present: soft, Non-Tender, normal bowel sounds. Absent: tenderness, distention, guarding, rebound, rigidity - Extremities Exam Extremities exam: Present: normal inspection, full ROM, normal capillary refill. Absent: tenderness, pedal edema, calf tenderness - Neurological Exam Neurological exam: Present: alert, oriented X3 - Psychiatric Psychiatric exam: Present: normal affect, normal mood - Skin Skin exam: Present: warm, dry, intact, other (multiple ecchymoses to the bilateral arms from prior IV sticks) Course Course Narrative: A 11-year-old female recently discharged for diastolic heart failure and community acquired pneumonia presents to the ED with worsening dyspnea. She initially came in short of breath with audible wheezes. She was placed on oxygen out triage after low oxygen saturation. She is not. Many acute distress. She has normal worker breathing. Lungs are wheezy bilaterally with course breath sounds. She is not have any pedal edema. Check a chest x-ray, basic labs, troponin, breathing treatments. Patient will likely need admission. - Reevaluation(s) Reevaluation #1: After the breathing treatments she continues to be course bilaterally with wheezing more so on the right. Chest x-ray reveals improvement in the right basilar craft. We had a discussion with the social service coordinator Suzan and annita of long care goals. Patient has been in the senior living in the past and does not wish to return. She is comfortable at home living with daughter as well as her caretakers. I discussed with the patient on disposition, patient and hematology supervisor would like to have patient admitted. She does not have oxygen at home. Will plan to admit patient for COPD exacerbation, dyspnea. Patient has IV Solu- Medrol ordered. Patient is 95% on RA currently after initially being hypoxic 90% Time: 18:00 - Consultations Consultation #1: Spoke with on-call hospitalist carlota Hill to admit for COPD exacerbation, dyspnea. No further orders at this time. Currently 95% on room air after 3 continuous duonebs and steroids. Lungs are coarse with rales/wheezes R > L Time: 18:02 Vital Signs Temperature 97.4 F L 10/30/16 13:48 Pulse Rate 84 10/30/16 13:48 Respiratory Rate 20 10/30/16 13:48 Blood Pressure 96/61 10/30/16 13:48 O2 Sat by Pulse Oximetry 99 10/30/16 13:48 Temperature 97.4 F L 10/30/16 13:48 Pulse Rate 57 10/30/16 15:53 Respiratory Rate 20 10/30/16 18:24 Blood Pressure 140/113 10/30/16 18:24 O2 Sat by Pulse Oximetry 97 10/30/16 16:38 Oxygen Delivery Oxygen Delivery Nasal Cannula Shortness of Breath/Dyspnea - Medical Records Medical records reviewed: Yes I reviewed the patient's medical records. - Lab Data Lab results reviewed: Yes I reviewed the patient's lab results. Result diagrams: 10/30/16 17:03 10/30/16 17:03 Lab Results 10/30/16 10/30/16 10/30/16 Range/Units 17:03 17:03 17:03 WBC 7.4 (4.3-11.1) K/mcL RBC 5.45 H (3.82-4.97) M/mcL Hgb 14.9 (11.5-15.4) g/dL Hct 46.1 H (35.3-44.9) % MCV 84.6 (83.0-100.0) fL MCH 27.3 L (28.0-33.3) pg MCHC 32.3 (31.6-35.5) g/dL RDW 13.6 (11.5-14.5) % Plt Count 303 (140-400) K/mcL MPV 9.5 (9.4-12.4) fL Immature Gran % 1.6 (0-4) % Seg Neutrophils % 55.4 % Lymphocytes % 23.5 % Monocytes % 9.8 % Eosinophils % 8.5 % Basophils % 1.2 % Neutrophils # 4.1 (1.6-8.9) K/mcL Lymphocytes # 1.7 (0.6-4.6) K/mcL Monocytes # 0.7 (0.0-1.3) K/mcL Eosinophils # 0.6 (0.0-0.6) K/mcL Basophils # 0.1 (0.0-0.2) K/mcL Sodium 138 (136-145) mEq/L Potassium 4.6 H (3.5-4.5) mEq/L Chloride 100 (98-109) mEq/L Carbon Dioxide 26 (19-29) mEq/L BUN 21 H (7-20) mg/dL Creatinine 0.85 (0.57-1.11) mg/dL Est GFR ( Amer) > 60 (> 60) Est GFR (Non-Af Amer) > 60 (> 60) BUN/Creatinine Ratio 25 (6-26) Glucose 96 (70-99) mg/dL Calculated Osmolality 289 (280-300) Calcium 9.0 (8.6-10.8) mg/dL Troponin I 0.01 (0-0.03) ng/mL B-Natriuretic Peptide (0-100) pg/mL 10/30/16 Range/Units 17:03 WBC (4.3-11.1) K/mcL RBC (3.82-4.97) M/mcL Hgb (11.5-15.4) g/dL Hct (35.3-44.9) % MCV (83.0-100.0) fL MCH (28.0-33.3) pg MCHC (31.6-35.5) g/dL RDW (11.5-14.5) % Plt Count (140-400) K/mcL MPV (9.4-12.4) fL Immature Gran % (0-4) % Seg Neutrophils % % Lymphocytes % % Monocytes % % Eosinophils % % Basophils % % Neutrophils # (1.6-8.9) K/mcL Lymphocytes # (0.6-4.6) K/mcL Monocytes # (0.0-1.3) K/mcL Eosinophils # (0.0-0.6) K/mcL Basophils # (0.0-0.2) K/mcL Sodium (136-145) mEq/L Potassium (3.5-4.5) mEq/L Chloride (98-109) mEq/L Carbon Dioxide (19-29) mEq/L BUN (7-20) mg/dL Creatinine (0.57-1.11) mg/dL Est GFR ( Amer) (> 60) Est GFR (Non-Af Amer) (> 60) BUN/Creatinine Ratio (6-26) Glucose (70-99) mg/dL Calculated Osmolality (280-300) Calcium (8.6-10.8) mg/dL Troponin I (0-0.03) ng/mL B-Natriuretic Peptide 210 H (0-100) pg/mL - Radiology Data Radiology results reviewed: Yes I reviewed the patient's radiology results. Chest X-Ray 10/30/16 13:57 IMPRESSION: Some interval improvement in right basilar opacification and small effusion. Otherwise unremarkable chest. D/ / Ari Zhang MD / Ari Zhang MD Interpreting Provider: Ari Zhang MD - EKG Data EKG attestation: Yes I reviewed and interpreted this EKG. EKG results narrative: EKG performed 1545 sinus bradycardia 56 bpm DE interval 206 left axis deviation , good R-R wave progression, there are no ST elevations or depressions, no T- wave inversions. QRS 94 QT QTC 449 440. Compared to old EKG performed 2016 shows consistent findings normal sinus rhythm. No acute ischemic changes. Attestation Statement - Attestation Attestation: I examined this patient and my medical decision-making was reviewed with the PARTICIPANT ADMINISTRATOR/PA/Advanced Practice Nurse/Resident Physician. I agree with the documented findings, disposition and treatment plan as described except to the extent set forth below. Patient presents to the emergency department with a chief complaint of difficulty in breathing. Patient was just discharged a few days ago. Admitted for pneumonia. She has been getting worse home. Having to sleep propped up on pillows. Wheezing. On examination she is in no distress. She states she feels better on the oxygen. She has diffuse expiratory wheezing on my evaluation after 3 DuoNeb's. Plan. Patient feeling much better. Will admit.
[2016-10-30] MEDS ORDERED: Ipratropium/Albuterol Neb 3 ML IH ONE (16:16)
[2016-10-30 17:12] LABS: Basophils # 0.1 K/mcL (0.0-0.2); Basophils % 1.2 %; Eosinophils # 0.6 K/mcL (0.0-0.6); Eosinophils % 8.5 %; Hematocrit 46.1 % (35.3-44.9); Hemoglobin 14.9 g/dL (11.5-15.4); Immature Granulocytes % 1.6 % (0-4); Lymphocytes # 1.7 K/mcL (0.6-4.6); Lymphocytes % 23.5 %; Mean Corpuscular HGB Conc 32.3 g/dL (31.6-35.5); Mean Corpuscular Hemoglobin 27.3 pg (28.0-33.3); Mean Corpuscular Volume 84.6 fL (83.0-100.0); Mean Platelet Volume 9.5 fL (9.4-12.4); Monocytes # 0.7 K/mcL (0.0-1.3); Monocytes % 9.8 %; Neutrophils # 4.1 K/mcL (1.6-8.9); Platelet Count 303 K/mcL (140-400); Red Blood Count 5.45 M/mcL (3.82-4.97); Red Cell Distribution Width 13.6 % (11.5-14.5); Segmented Neutrophils % 55.4 %
[2016-10-30 17:23] LABS: BUN/Creatinine Ratio 25 (6-26); Blood Urea Nitrogen 21 mg/dL (7-20); Carbon Dioxide 26 mEq/L (19-29); Chloride 100 mEq/L (98-109); Glucose 96 mg/dL (70-99); Osmolality,Calculated 289 (280-300); Potassium 4.6 mEq/L (3.5-4.5); Sodium 138 mEq/L (136-145); eGFR For African Americans > 60 (> 60); eGFR For Non-African Americans > 60 (> 60)
[2016-10-30] MEDS ORDERED: methylPREDNISolone 125 MG/2 ML VIAL IV ONE (17:43)
--- NOTE | 2016-10-30 20:32 | Internal Med History&Physical ---
Date of Encounter: 10/30/16 Time of Encounter: 20:29 Assessment and Plan (1) CAP (community acquired pneumonia) Current visit: No Status: Acute CXR did demonstrate improving right basilar opacity which indicates resolving pneumonia she had been treated for during previous admission Will continue patient on Levaquin 500 mg IV daily She does not meet any SIRS criteria Continue supplemental oxygen and breathing treatments as needed She is not on oxygen at home, and is currently saturating in low-mid 90's on 2 L nasal cannula; may benefit from home oxygen upon discharge (2) Diastolic CHF Current visit: No Status: Chronic As demonstrated on echo last week, preserved EF of 55% She does not have home diuretics and appears mildly hypervolemic, will gently diurese with one time 20 mg Lasix IV Will measure daily weights and I/O's Qualifiers: Congestive heart failure chronicity: chronic Qualified Code(s): I50.32 - Chronic diastolic (congestive) heart failure (3) Hypertension Current visit: No Status: Chronic Blood pressures borderline elevated upon admission Will continue home Toprol, Norvasc and Clonidine Qualifiers: Hypertension type: essential hypertension Qualified Code(s): I10 - Essential (primary) hypertension (4) History of stroke Current visit: No Status: Chronic Stable, no acute deficits at this point Will continue home ASA and Plavix (5) DVT prophylaxis Current visit: No Status: Acute Lovenox 30 mg daily Internal Medicine - H&P: HPI Chief complaint: shortness of breath Admitted From: Home Plans for Post Hospital Care: Home History of present illness: Ms. Boateng is a 89 year old female who presents to the ED with shortness of breath with nonproductive cough. She is accompanied by her daughter whom she lives with and is able to assist with history. She was recently hospitalized last week with community acquired pneumonia and was found to have diastolic heart failure. She was discharged with 5 days of Levaquin and claims to have finished the course. She states that when she went home, she was feeling better but in the last 2 or 3 days she became increasingly wheezy and more short of breath at rest. Daughter does help with activities of daily living and when she is not around there as a private caregiver as well. They noticed that the patient has required more pillows at night in order to sleep and sits up to relieve her breathing. She has never been diagnosed with COPD and is not on any oxygen or inhalers at home. Patient denies any recent chest pain, fever , sputum production, lightheadedness, and has never been diagnosed with cancer or blood clots. Of note, patient did sustain a CVA roughly 5 years ago and has been virtually bedbound since then. Past Med Surg Social Fam HX - Past Medical History Medical history: arthritis, CHF, coronary artery disease, CVA, hypertension, peripheral artery disease, RA, TIA Psychiatric history: no psych history - Past Surgical History Surgical History: hip replacement, knee replacement, orthopedic, other, ANASTASIA/BSO , appendectomy - Social History Smoking Status: Never smoker Smokeless Tobacco Status: No Alcohol use: none Drug use: none - Family History Mother Living Status: Hx Family Cardiac Disorders: No Hx Family Respiratory Disorders: No Hx Family Cancer: No Hx Family GI Disorders: No Hx Family Endocrine Disorder: No Hx Family Neuromuscular Disorders: No Hx Family Neurologic Disorders: No Hx Family HEENT Disorders: No Hx Family Autoimmune Disorders: No Father Living Status: Hx Family Cardiac Disorders: No Hx Family Respiratory Disorders: No Hx Family Cancer: No Hx Family GI Disorders: No Hx Family Endocrine Disorder: No Hx Family Neuromuscular Disorders: No Hx Family Neurologic Disorders: No Hx Family HEENT Disorders: No Hx Family Autoimmune Disorders: No Internal Medicine - H&P: Meds Latanoprost [Xalatan] 1 drop BOTH EYES QPM 08/29/15 [History] Aspirin [Ecotrin] 325 mg PO HS 10/21/16 [History] CloNIDine HCl [Clonidine HCl] 0.2 mg PO TID 10/21/16 [History] Clopidogrel [Plavix] 75 mg PO DAILY 10/21/16 [History] Metoprolol XL (24 HR) Succ [Toprol Xl] 100 mg PO DAILY 10/21/16 [History] Sodium Bicarbonate 650 mg PO QAM 10/21/16 [History] HydrOXYzine Pamoate 50 mg PO HS 10/22/16 [History] Multivitamin/Iron/Folic Acid [Centrum Complete Multivit Tab] 1 tab PO DAILY [History] Mv-Mn/FA/Vit K1/Lycop/Lut/Zeax [Ocuvite Eye + Multi Tablet] 1 tab PO QDPC [History] Tramadol HCl [Ultram] 50 mg PO PRN PRN 10/22/16 [History] Amlodipine [Norvasc] 10 mg PO DAILY #30 tablet 10/24/16 [Rx] Allergies Sulfa (Sulfonamide Antibiotics) Allergy (Mild, Verified 04/19/16 10:49) Rash clemastine [From Tavist] Allergy (Verified 05/27/16 13:53) See Comments Hydromorphone [From Dilaudid] Allergy (Verified 05/27/16 13:53) See Comments pseudoephedrine [From Tavist] Allergy (Verified 05/27/16 13:53) See Comments diphenhydramine [From Benadryl] Adverse Reaction (Mild, Verified 04/19/16 10:47) Drowsy orange juice Adverse Reaction (Mild, Verified 04/19/16 10:51) See Comments Patient reporst "gallbladder attacks" acetaminophen [From Tylenol] Adverse Reaction (Verified 08/31/15 11:06) Hypertension Hydralazine Adverse Reaction (Verified 07/25/16 11:50) See Comments patient is sensitive to medication, drops blood pressure too much ibuprofen [From Advil] Adverse Reaction (Verified 05/27/16 13:53) See Comments morphine Adverse Reaction (Verified 08/31/15 11:06) See Comments Penicillins Adverse Reaction (Verified 08/31/15 11:05) Nose Bleed All Systems PM: A 10-system review of systems was performed and is negative for pertinent findings except as documented above in the HPI. - Constitutional Constitutional: no chills, no fever(s), no night sweats - EENT Eyes: no change in vision, no discharge, no pain, no photophobia Ears: no ear discharge, no ear pain, no tinnitus Nose, mouth and throat: no dysphagia, no nasal discharge, no neck pain, no sore throat - Cardiovascular Cardiovascular ROS IM: dyspnea, no chest pain, no diaphoresis, no lightheadedness, no palpitations, no syncope - Respiratory Respiratory: cough, dyspnea, wheezing, no excessive phlegm production, no change in phlegm color, no pain with cough - Gastrointestinal Gastrointestinal: no abdominal pain, no diarrhea, no hematemesis, no hematochezia, no melena, no nausea, no vomiting - Genitourinary Genitourinary: no change in urinary stream, no dysuria, no flank pain, no hematuria - Musculoskeletal Musculoskeletal ROS IM: no numbness, no tingling - Integumentary Integumentary IM: no rash, no unusual bruising - Neurological Neurological ROS: no confusion, no convulsions, no focal weakness, no numbness, no tingling, no tremor(s) - Hematologic/Lymphatic Hematologic/Lymphatic: no easy bruising - Constitutional Vitals: Temp Pulse Resp BP Pulse Ox 97.4 F L 65 20 175/92 97 10/30/16 13:48 10/30/16 19:12 10/30/16 19:12 10/30/16 19:12 10/30/16 19:12 General appearance: Present: cooperative, A&O X 3, pleasant, no acute distress, answers questions appropriately - Head Head exam: Present: atraumatic, normocephalic - Eye Eye exam: Present: PERRL, conjuntiva pink, sclera anicteric - Neck Neck exam general surgery: Present: supple, trachea midline. Absent: lymphadenopathy - Respiratory Respiratory exam: Present: wheezes. Absent: accessory muscle use, decreased breath sounds, rales, respiratory distress, rhonchi - Cardiovascular Cardiovascular exam: Present: RRR, +S1, +S2. Absent: diastolic murmur, gallop, rubs, systolic murmur - GI/Abdominal GI/Abdominal exam: Present: normal bowel sounds, soft, no peritoneal signs. Absent: distended, tenderness - Extremities Exam Extremities exam: Present: warm, radial pulses palpable and symetrical. Absent : calf tenderness, cyanotic, pedal edema - Neurological Exam Neurological exam: Present: alert, oriented X3, no focal deficits. Absent: facial droop, speech deficit - Skin Skin exam: Present: dry, intact Internal Med - H&P Results - Labs CBC & Chem 7: 10/30/16 17:03 10/30/16 17:03
[2016-10-30] MEDS ORDERED: Ondansetron ODT 4 MG TAB.RAPDIS SL PRN (20:35)
[2016-10-30] MEDS ORDERED: Naloxone 0.4 MG/ML INJ IVP PRN (20:35)
[2016-10-30] MEDS ORDERED: Albuterol 2.5 MG/3 ML NEBULIZER IH PRN (20:39)
[2016-10-30] MEDS: hydrOXYzine pamoate 25 MG CAPSULE PO SCH (22:28)
[2016-10-30] MEDS: cloNIDine HCl 0.1 MG TABLET PO SCH (22:29)
[2016-10-30] MEDS: Aspirin Enteric Coated 325 MG Tablet PO SCH (22:29)
[2016-10-30] MEDS: Budesonide/Formoterol 80/4.5 MDI IH SCH (22:54)
[2016-10-30] MEDS: Ipratropium/Albuterol Neb 3 ML IH SCH (22:54)
[2016-10-30] MEDS ORDERED: Furosemide 20 MG/2 ML VIAL IVP ONE (22:56)
[2016-10-30] MEDS ORDERED: Furosemide 20 MG TABLET PO PRN (23:31)
--- NOTE | 2016-10-30 23:35 | Event Note ---
Date of Encounter: 10/30/16 Time of Encounter: 23:32 Patient seen and examined withpractitioner. Patient just discharged from the hospital a week ago after community acquired pneumonia and completed a total of 10 days of Levaquin. For the past few days patient has been more short of breath with minimal exertion wheezing and shortness of breath when she lays flat. Patient denies any significant sputum production no fevers or chills. Because the patient is still short of breath will continue full antibiotic course for pneumonia 14 days will give 4 more days of Levaquin. I suspect there is also an element of diastolic CHF. If anything there is only mild volume overload. I will give the patient one dose of Lasix 20 mg IV and keep her on 20 mg PO daily. I would also get a VQ scan to r?o pulmonary embolism.
[2016-10-31] MEDS ORDERED: methylPREDNISolone 125 MG/2 ML VIAL IVP SCH
[2016-10-31] MEDS: traMADol 50 MG TABLET PO SCH ×2 (01:06→09:30)
[2016-10-31] MEDS: Ipratropium/Albuterol Neb 3 ML IH SCH ×4 (03:45→21:50)
[2016-10-31 05:54] LABS: BUN/Creatinine Ratio 32 (6-26); Blood Urea Nitrogen 24 mg/dL (7-20); Calcium 8.3 mg/dL (8.6-10.8); Carbon Dioxide 23 mEq/L (19-29); Chloride 102 mEq/L (98-109); Glucose 178 mg/dL (70-99); Magnesium 1.7 mg/dL (1.6-2.6); Osmolality,Calculated 292 (280-300); Phosphorous 3.8 mg/dL (2.3-4.7); Sodium 137 mEq/L (136-145); eGFR For African Americans > 60 (> 60); eGFR For Non-African Americans > 60 (> 60)
[2016-10-31] MEDS ORDERED: *HR* Enoxaparin 30 MG/0.3 ML SYRINGE SQ SCH (06:00)
[2016-10-31 06:05] LABS: Potassium 4.8 mEq/L (3.5-4.5)
[2016-10-31 07:29] LABS: Basophils % 0.6 %; Eosinophils % 0.2 %; Hematocrit 37.5 % (35.3-44.9); Hemoglobin 12.2 g/dL (11.5-15.4); Lymphocytes # 0.8 K/mcL (0.6-4.6); Lymphocytes % 14.7 %; Mean Corpuscular HGB Conc 32.5 g/dL (31.6-35.5); Mean Corpuscular Hemoglobin 27.5 pg (28.0-33.3); Mean Corpuscular Volume 84.5 fL (83.0-100.0); Mean Platelet Volume 10.2 fL (9.4-12.4); Monocytes # 0.1 K/mcL (0.0-1.3); Monocytes % 1.5 %; Neutrophils # 4.3 K/mcL (1.6-8.9); Platelet Count 278 K/mcL (140-400); Red Blood Count 4.44 M/mcL (3.82-4.97); Red Cell Distribution Width 13.5 % (11.5-14.5)
[2016-10-31] MEDS ORDERED: Levofloxacin 500 MG/100 ML 500 MG/100 ML BAG IVPB SCH (09:00)
[2016-10-31] MEDS: Metoprolol XL (24 HR) Succ 50 MG TAB.ER.24H PO SCH (09:30)
[2016-10-31] MEDS: cloNIDine HCl 0.1 MG TABLET PO SCH ×3 (09:30→20:26)
[2016-10-31] MEDS: amLODIPine 5 MG TABLET PO SCH (09:31)
[2016-10-31] MEDS: Budesonide/Formoterol 80/4.5 MDI IH SCH ×2 (10:48→21:49)
[2016-10-31] MEDS ORDERED: traMADol 50 MG TABLET PO PRN (12:17)
--- NOTE | 2016-10-31 13:25 | Internal Med Progress Note ---
Date of Encounter: 10/31/16 Time of Encounter: 13:21 - Assessment and plan (1) Acute exacerbation of CHF (congestive heart failure) Current Visit: No Status: Acute Assessment and plan: last ECHO showed normal EF and moderate DD. on exam appears to be euvolemic today, however was given 20 mg IV of lasix CXR shows improving pneumonia marcella SOB is possible from marcella diastolic CHF will keep on 20 mg daily of lasix for now. no signs of volume overload. continue home meds Qualifiers: Congestive heart failure type: unspecified congestive heart failure type Qualified Code(s): I50.9 - Heart failure, unspecified (2) CAP (community acquired pneumonia) Current Visit: No Status: Acute Assessment and plan: getting better. CXR shows improving pneumonia will continue 5 more days of antibiotics as planned and stop, can change it to oral wean o2 as able. - Time Spent With Patient 25 - 35 minutes - Subjective Interval history: Patient seen at the bedside. Not in any acute respiratory distress. Reports that she feels better. Was recently discharged from the hospital, was treated for pneumonia, came in for shortness of breath. denies SOB now, no chest pain ,has mild cough. no fever - Constitutional Vitals: Temp Pulse Resp BP Pulse Ox 97.4 F L 78 16 120/76 98 10/31/16 10:45 10/31/16 10:45 10/31/16 10:48 10/31/16 10:45 10/31/16 10:48 General appearance: Present: cooperative, A&O X 3, pleasant, no acute distress, answers questions appropriately Exam: - Head Head exam: Present: atraumatic, normocephalic - Eye Eye exam: Present: PERRL, conjuntiva pink, sclera anicteric - Neck Neck exam general surgery: Present: supple, trachea midline. Absent: lymphadenopathy - Respiratory Respiratory exam: Present: occ creptns at the bases, no wheezing at present Absent: accessory muscle use, decreased breath sounds, rales, respiratory distress - Cardiovascular Cardiovascular exam: Present: RRR, +S1, +S2. Absent: diastolic murmur, gallop, rubs, systolic murmur - GI/Abdominal GI/Abdominal exam: Present: normal bowel sounds, soft, no peritoneal signs. Absent: distended, tenderness - Extremities Exam Extremities exam: Present: warm, radial pulses palpable and symetrical. Absent : calf tenderness, cyanotic, pedal edema - Neurological Exam Neurological exam: Present: alert, oriented X3, no focal deficits. Absent: facial droop, speech deficit - Skin Skin exam: Present: dry, intact Internal Medicine: Result - Labs CBC & Chem 7: 10/31/16 07:01 10/31/16 04:20 Labs: Short CBC 10/31/16 Range/Units 07:01 WBC 5.3 (4.3-11.1) K/mcL Hgb 12.2 D (11.5-15.4) g/dL Hct 37.5 (35.3-44.9) % Plt Count 278 (140-400) K/mcL Neutrophils # 4.3 (1.6-8.9) K/mcL BMP 10/31/16 04:20 Sodium 137 Potassium 4.8 H Chloride 102 Carbon Dioxide 23 BUN 24 H Creatinine 0.76 Glucose 178 H Calcium 8.3 L Consult Discharge Plan - Plan Referrals: ColMichael martinez DO [Primary Care Provider] -
--- NOTE | 2016-10-31 13:49 | Electrocardiograph Report ---
[place] [id number] Test Date: 2016-10-30 Pat Name: María Boateng Department: 104 Room: 3A24 Gender: F Sole Layer: : 1925 Requested By: Olaf Mathews Order Number: [id number] Reading MD: Sanket Zelaya MD Measurements Intervals [place] Rate: 56 P: 34 CO: 206 QRS: -22 QRSD: 94 T: 2 QT: 449 QTc: 440 Interpretive Statements SINUS BRADYCARDIA BORDERLINE LEFT AXIS DEVIATION VOLTAGE CRITERIA FOR LVH Electronically Signed On 10-31-2016 13:47:49 EST by Sanket Zelaya MD
[2016-10-31] MEDS: Furosemide 20 MG TABLET PO SCH (14:43)
[2016-10-31] MEDS: Latanoprost 2.5 ML BOTTLE BOTH EYES SCH (18:00)
[2016-10-31] MEDS: hydrOXYzine pamoate 25 MG CAPSULE PO SCH (20:26)
[2016-10-31] MEDS: Aspirin Enteric Coated 325 MG Tablet PO SCH (20:26)
[2016-11-01] MEDS: Ipratropium/Albuterol Neb 3 ML IH SCH ×5 (03:45→23:34)
[2016-11-01] MEDS: *HR* Enoxaparin 40 MG/0.4 ML SYRINGE SQ SCH (06:31)
[2016-11-01] MEDS ORDERED: levoFLOXacin 500 MG TABLET PO SCH (09:00)
[2016-11-01] MEDS: amLODIPine 5 MG TABLET PO SCH (10:14)
[2016-11-01] MEDS: Metoprolol XL (24 HR) Succ 50 MG TAB.ER.24H PO SCH (10:15)
[2016-11-01] MEDS: cloNIDine HCl 0.1 MG TABLET PO SCH ×3 (10:16→21:28)
[2016-11-01] MEDS: Furosemide 20 MG TABLET PO SCH (10:16)
[2016-11-01] MEDS: Budesonide/Formoterol 80/4.5 MDI IH SCH ×2 (10:50→19:42)
--- NOTE | 2016-11-01 13:23 | Internal Med Progress Note ---
Date of Encounter: 11/01/16 Time of Encounter: 13:21 - Assessment and plan (1) Acute exacerbation of CHF (congestive heart failure) Current Visit: No Status: Acute Assessment and plan: last ECHO showed normal EF and moderate DD. CXR shows improving pneumonia marcella SOB is possible from marcella diastolic CHF will keep on 20 mg daily of lasix . no signs of volume overload. continue home meds. still on 2.5 l , will try and wean off o2 if possible. possible dc tomm. Qualifiers: Congestive heart failure type: unspecified congestive heart failure type Qualified Code(s): I50.9 - Heart failure, unspecified (2) CAP (community acquired pneumonia) Current Visit: No Status: Acute Assessment and plan: getting better. CXR shows improving pneumonia will continue 5 more days of antibiotics as planned and stop, can change it to oral wean o2 as able. - Time Spent With Patient 25 - 35 minutes - Subjective Interval history: Patient seen at the bedside. Not in any acute respiratory distress. Reports that she feels better but upset that she had to go for the V/Q scan. Was recently discharged from the hospital, was treated for pneumonia, came in for shortness of breath. denies SOB now, no chest pain ,has mild cough. no fever. currently at 2.5 l now, normally not on o2 at home. - Constitutional Vitals: Temp Pulse Resp BP Pulse Ox 97.4 F L 76 16 140/82 93 L 11/01/16 10:55 11/01/16 10:55 11/01/16 10:55 11/01/16 10:55 11/01/16 10:55 General appearance: Present: cooperative, A&O X 3, pleasant, no acute distress, answers questions appropriately Exam: - Head Head exam: Present: atraumatic, normocephalic - Eye Eye exam: Present: PERRL, conjuntiva pink, sclera anicteric - Neck Neck exam general surgery: Present: supple, trachea midline. Absent: lymphadenopathy - Respiratory Respiratory exam: Present: occ creptns at the bases, no wheezing at present Absent: accessory muscle use, decreased breath sounds, rales, respiratory distress - Cardiovascular Cardiovascular exam: Present: RRR, +S1, +S2. Absent: diastolic murmur, gallop, rubs, systolic murmur - GI/Abdominal GI/Abdominal exam: Present: normal bowel sounds, soft, no peritoneal signs. Absent: distended, tenderness - Extremities Exam Extremities exam: Present: warm, radial pulses palpable and symetrical. Absent : calf tenderness, cyanotic, pedal edema - Neurological Exam Neurological exam: Present: alert, oriented X3, no focal deficits. Absent: facial droop, speech deficit - Skin Skin exam: Present: dry, intact Internal Medicine: Result - Labs CBC & Chem 7: 10/31/16 07:01 10/31/16 04:20 Consult Discharge Plan - Plan Referrals: Michael Sanders DO [Primary Care Provider] -
[2016-11-01] MEDS: Latanoprost 2.5 ML BOTTLE BOTH EYES SCH (17:04)
[2016-11-01] MEDS: hydrOXYzine pamoate 25 MG CAPSULE PO SCH (21:28)
[2016-11-01] MEDS: Aspirin Enteric Coated 325 MG Tablet PO SCH (21:28)
[2016-11-02] MEDS: Ipratropium/Albuterol Neb 3 ML IH SCH ×3 (03:44→11:34)
[2016-11-02] MEDS: *HR* Enoxaparin 40 MG/0.4 ML SYRINGE SQ SCH (06:03)
[2016-11-02 07:40] VITALS: BP 147/78
[2016-11-02] MEDS: Budesonide/Formoterol 80/4.5 MDI IH SCH (08:03)
[2016-11-02] MEDS: Furosemide 20 MG TABLET PO SCH (08:57)
[2016-11-02] MEDS: Metoprolol XL (24 HR) Succ 50 MG TAB.ER.24H PO SCH (09:06)
[2016-11-02] MEDS: amLODIPine 5 MG TABLET PO SCH (09:06)
[2016-11-02] MEDS: cloNIDine HCl 0.1 MG TABLET PO SCH (09:07)
--- NOTE | 2016-11-02 09:09 | Discharge Summary ---
Date of Encounter: 11/02/16 Time of Encounter: 09:07 - Discharge Diagnosis (1) Acute exacerbation of CHF (congestive heart failure) Priority: Primary Status: Acute Qualifiers: Congestive heart failure type: diastolic Qualified Code(s): I50.33 - Acute on chronic diastolic (congestive) heart failure (2) CAP (community acquired pneumonia) Priority: Primary Status: Acute - Discharge Medications Prescriptions: Furosemide [Lasix] 20 mg PO DAILY #30 tablet Levofloxacin [Levaquin] 750 mg PO Q48H 2 Days Home Medications: Latanoprost [Xalatan] 1 drop BOTH EYES QPM 08/29/15 [History] Aspirin [Ecotrin] 325 mg PO HS 10/21/16 [History] CloNIDine HCl [Clonidine HCl] 0.2 mg PO TID 10/21/16 [History] Clopidogrel [Plavix] 75 mg PO DAILY 10/21/16 [History] Metoprolol XL (24 HR) Succ [Toprol Xl] 100 mg PO DAILY 10/21/16 [History] Sodium Bicarbonate 650 mg PO QAM 10/21/16 [History] HydrOXYzine Pamoate 50 mg PO HS 10/22/16 [History] Multivitamin/Iron/Folic Acid [Centrum Complete Multivit Tab] 1 tab PO DAILY [History] Mv-Mn/FA/Vit K1/Lycop/Lut/Zeax [Ocuvite Eye + Multi Tablet] 1 tab PO QDPC [History] Tramadol HCl [Ultram] 50 mg PO PRN PRN 10/22/16 [History] Amlodipine [Norvasc] 10 mg PO DAILY #30 tablet 10/24/16 [Rx] Furosemide [Lasix] 20 mg PO DAILY #30 tablet 11/02/16 [Rx] Levofloxacin [Levaquin] 750 mg PO Q48H 2 Days 11/02/16 [Rx] Allergies/Adverse Reactions: Allergies Sulfa (Sulfonamide Antibiotics) Allergy (Mild, Verified 04/19/16 10:49) Rash clemastine [From Tavist] Allergy (Verified 05/27/16 13:53) See Comments Hydromorphone [From Dilaudid] Allergy (Verified 05/27/16 13:53) See Comments pseudoephedrine [From Tavist] Allergy (Verified 05/27/16 13:53) See Comments diphenhydramine [From Benadryl] Adverse Reaction (Mild, Verified 04/19/16 10:47) Drowsy orange juice Adverse Reaction (Mild, Verified 04/19/16 10:51) See Comments Patient reporst "gallbladder attacks" acetaminophen [From Tylenol] Adverse Reaction (Verified 08/31/15 11:06) Hypertension Hydralazine Adverse Reaction (Verified 07/25/16 11:50) See Comments patient is sensitive to medication, drops blood pressure too much ibuprofen [From Advil] Adverse Reaction (Verified 05/27/16 13:53) See Comments morphine Adverse Reaction (Verified 08/31/15 11:06) See Comments Penicillins Adverse Reaction (Verified 08/31/15 11:05) Nose Bleed Date of admission: 10/31/16 14:50 Primary care physician: Michael Sanders Discharging clinician: Laury Farrar Anticipated date of discharge: 11/02/16 - Patient Status Disposition: Home, Self-Care Condition: Fair Functional capacity at discharge: uses cane/walker Overall status at discharge: patient is back to baseline - Discharge Instructions Instructions: Chronic Obstructive Pulmonary Disease (DC) Follow Up With: Michael Sanders, [Primary Care Provider] - (Office request that the patient call the office to make the hospital f/u. Thank you.) - Diet and Activity Activity: as per physical therapy Diet: other (cardiac diet) Interval History: Patient just discharged from the hospital a week ago after community acquired pneumonia and completed a total of 10 days of Levaquin. For the past few days patient has been more short of breath with minimal exertion wheezing and shortness of breath when she lays flat. Patient denies any significant sputum production no fevers or chills. Patient was admitted for further evaluation.. I suspect there is also an element of diastolic CHF. If anything there is only mild volume overload. She was started on IV Lasix with which she improved. A VQ scan was also done that was negative for PE. last ECHO showed normal EF and moderate DD. CXR shows improving pneumonia marcella SOB is possible from marcella diastolic CHF will keep on 20 mg daily of lasix . Patient has improved clinically now, she is being discharged today and was discussed with the daughter and the patient herself that she might benefit from low-dose Lasix at home. 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 She will follow up as outpatient with her PCP. Hospital course: Ms. Boateng is a 89 year old female Time spent discussing smoking cessation with patient: more than 10 minutes - Time Spent with Patient Total time spent providing and/or coordinating discharge services: Greater than 30 minutes - Constitutional Vitals: Temp Pulse Resp BP Pulse Ox 97.6 F 72 17 147/78 96 11/02/16 07:39 11/02/16 07:39 11/02/16 07:39 11/02/16 07:39 11/02/16 07:39 General appearance: Present: cooperative, A&O X 3, pleasant, no acute distress, answers questions appropriately Exam: - Head Head exam: Present: atraumatic, normocephalic - Eye Eye exam: Present: PERRL, conjuntiva pink, sclera anicteric - Neck Neck exam general surgery: Present: supple, trachea midline. Absent: lymphadenopathy - Respiratory Respiratory exam: Present: b/l clear Absent: accessory muscle use, decreased breath sounds, rales, respiratory distress, rhonchi - Cardiovascular Cardiovascular exam: Present: RRR, +S1, +S2. Absent: diastolic murmur, gallop, rubs, systolic murmur - GI/Abdominal GI/Abdominal exam: Present: normal bowel sounds, soft, no peritoneal signs. Absent: distended, tenderness - Extremities Exam Extremities exam: Present: warm, radial pulses palpable and symetrical. Absent : calf tenderness, cyanotic, pedal edema - Neurological Exam Neurological exam: Present: alert, oriented X3, no focal deficits. Absent: facial droop, speech deficit - Skin Skin exam: Present: dry, intact
== END 2016-11-02 13:56 | disposition home or self-care (01) | DRG 291 ==
LOC: 3ANU 12:43 → EMEROO 12:43 → 3ANU 20:39 → SUATTDRO 10-31 14:50
PROVIDERS: ADMIT Nurse Practitioner Acute Care; ATTEND Internal Medicine Endocrinology, Diabetes & Metabolism